=== PATIENT | female | born 1975 | race Caucasian/White ===

== ENCOUNTER 2016-08-23 23:39 | Emergency (ER) | payer OTHER ==
[~2016-08-23] VITALS: Ht 157.5 cm; Wt 105.0 kg
[~2016-08-23 23:39] MED LIST: BIOTIN1000 MICRO PO; HYDROCODON-ACE1 EAC7 PO; LEVOTHYROXINE25 MCG PO
[2016-08-23] MEDS ORDERED: QUASENSE1 EACH PO (23:57)
[2016-08-24 00:24] LABS: CHLORIDE 109 mEq/L (99-109); POTASSIUM 3.8 mEq/L (3.7-5.4); SODIUM 137 mEq/L (136-147)
[2016-08-24 00:25] LABS: GLUCOSE 94 mg/dL (70-99)
[2016-08-24 00:27] LABS: ANION GAP 11 MEQ/L (2-14)
[2016-08-24 00:29] LABS: GFR ESTIMATE (CALCULATED) 53 mL/min/
[2016-08-24 00:30] LABS: UREA NITROGEN (BUN) 13 mg/dL (9-23)
[2016-08-24 00:31] LABS: HEMATOCRIT 39.7 % (36.0-46.0); MCH 31.2 PG (29.0-34.0); MCV 89.2 FL (83-99); MEAN PLAT.VOLUME 10.6 uM^3 (9.5-12.4); PLATELET COUNT 291 K/uL (156-360); RBC DIS.WIDTH-CV 12.6 % (11.8-14.6); RED BLOOD COUNT 4.45 M/uL (3.80-5.20); WHITE BLOOD COUNT 9.7 K/uL (4.1-10.2)
[2016-08-24 00:49] VITALS: BP 152/79
== END 2016-08-24 00:54 | disposition home or self-care (01) ==
LOC: EME 23:39
PROVIDERS: Physician Assistant
DX: N20.1 Calculus of ureter (principal)
CPT/HCPCS: 74176; 80048; 85027; 99281; 99284